=== PATIENT | female | born 1970 | race Caucasian/White ===

== ENCOUNTER 2020-06-04 20:30 | Emergency (ER) | payer OTHER ==
[~2020-06-04] VITALS: Ht 154.9 cm; Wt 72.6 kg
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
[2020-06-04] MEDS ORDERED: ACETAMINOPHEN 325 MG TABLET PO ONE (21:30)
[2020-06-04] MEDS ORDERED: ACETAMINOPHEN ES 500 MG TABLET ONE (21:48)
--- NOTE | 2020-06-04 22:43 | NUR ---
PT IS MEDICALLY STABLE FOR D/C. Patient discharged to home in stable condition. Rx and Written and verbal after care instructions given. Patient verbalizes understanding of instruction. pt was provided w/ l shoulder sling prior to discharge
[2020-06-04 22:44] VITALS: BP 125/60
== END 2020-06-04 22:44 | disposition home or self-care (01) ==
LOC: ER 20:35
DX: M54.2 Cervicalgia (principal); M25.522 Pain in left elbow; M32.9 Systemic lupus erythematosus, unspecified; M06.9 Rheumatoid arthritis, unspecified; Z88.0 Allergy status to penicillin; Z88.2 Allergy status to sulfonamides; Z88.8 Allergy status to other drugs, medicaments and biological substances; Y08.89XA Assault by other specified means, initial encounter; Y93.89 Activity, other specified; Y92.89 Other specified places as the place of occurrence of the external cause; Y99.8 Other external cause status
CPT/HCPCS: 72125-TC; 73080-TC